=== PATIENT | female | born 1980 | race Caucasian/White ===

== ENCOUNTER 2024-01-15 13:15 | Emergency (ER) | payer OTHER ==
[~2024-01-15] VITALS: Ht 154.9 cm; Wt 71.7 kg
[2024-01-15 13:30] VITALS: BP 110/65; PULSE 82; RESP 18; TEMP 97.1; O2SAT 98
[2024-01-15] MEDS: KETOROLAC 30 MG/ML VIAL IM ONE (14:28)
[2024-01-15] MEDS ORDERED: ACET-10509 PO (14:58)
== END 2024-01-15 15:11 | disposition home or self-care (01) ==
LOC: MED 13:15
DX: R51.9 Headache, unspecified (principal); E11.65 Type 2 diabetes mellitus with hyperglycemia; Z79.4 Long term (current) use of insulin; Z79.899 Other long term (current) drug therapy
CPT/HCPCS: 81025; 96372; 99283; J1885

== ENCOUNTER 2024-07-14 20:14 | Emergency (ER) | payer OTHER ==
[~2024-07-14] VITALS: Ht 154.9 cm; Wt 69.9 kg
[~2024-07-14 20:14] MED LIST: ACET500T99 PO
[2024-07-14 20:19] VITALS: BP 122/83; PULSE 101; RESP 20; TEMP 98.3; O2SAT 99
[2024-07-14 20:51] VITALS: BP 122/83; PULSE 101; RESP 20; TEMP 98.3; O2SAT 99
[2024-07-14] MEDS ORDERED: IBUP-2213 PO (21:09)
[2024-07-14] MEDS: KETOROLAC 60 MG/2 ML VIAL IM ONE (21:21)
== END 2024-07-14 21:42 | disposition home or self-care (01) ==
LOC: MED 20:14
DX: S61.512A Laceration without foreign body of left wrist, initial encounter (principal); F32.A Depression, unspecified; R03.0 Elevated blood-pressure reading, without diagnosis of hypertension; E11.9 Type 2 diabetes mellitus without complications; Z90.49 Acquired absence of other specified parts of digestive tract; Z90.710 Acquired absence of both cervix and uterus; Z79.899 Other long term (current) drug therapy; X58.XXXA Exposure to other specified factors, initial encounter; Y93.89 Activity, other specified; Y92.89 Other specified places as the place of occurrence of the external cause; Y99.8 Other external cause status
CPT/HCPCS: 12002; 81025; 96372; 99283; J1885